=== PATIENT | male | born 1975 | race Caucasian/White ===

== ENCOUNTER 2018-10-22 20:31 | Inpatient (IN) | payer OTHER ==
[~2018-10-22] VITALS: Ht 160 cm; Wt 68.1 kg
[2018-10-22 23:35] VITALS: BP 120/67
[2018-10-23] MEDS ORDERED: CIPROFLOXACIN 400 MG in APPROPRIATE DILUENT 1 EA IV SCH ×2
[2018-10-23] MEDS ORDERED: DICY10CA13 PO (00:23)
[2018-10-23] MEDS ORDERED: ZANTTAB PO (00:23)
[2018-10-23] MEDS: NS 1,000 ML IV SCH ×3 (01:46→23:59)
[2018-10-23] MEDS: metroNIDAZOLE 500 MG in APPROPRIATE DILUENT 1 EA IV SCH ×2 (02:59→08:36)
[2018-10-23] MEDS: HEPARIN SOD (PORCINE) 5000 UNITS/ML VIAL SC SCH ×2 (05:39→18:14)
[2018-10-23 06:00] VITALS: BP 129/76
[2018-10-23] MEDS: FAMOTIDINE 20 MG TAB PO SCH (08:36)
[2018-10-23] MEDS ORDERED: DICYCLOMINE 10 MG CAP PO SCH (09:00)
--- NOTE | 2018-10-23 10:30 | HPE ---
DATE OF ADMISSION: 10/23/2018 ATTENDING PHYSICIAN: Dr. Samson CHIEF COMPLAINT: Nausea, vomiting, diarrhea and abdominal pain. HISTORY OF PRESENT ILLNESS: The patient is a 43-year-old white male transferred from [facility] due to above complaints. History is provided by himself; however, the patient is a poor historian. He states that in the several years he has intermittent abdominal pain, nausea, vomiting, and diarrhea, which he did not know what caused it. He was diagnosed with Clostridium (C.) difficile diarrhea in [facility] and was treated with Flagyl. He stated that he was seen by dining room host/hostess in [place] and recommend to followup for colonoscope to rule out colitis. Today, due to worsening pain, he went to [place] again and in that hospital he had an abdominal CT done, which demonstrated colitis. He was requested for transfer here for further evaluation due to gastroenterology service here in this hospital. Otherwise, no other complaints. REVIEW OF SYSTEMS: Denies fever. No chills. No headache or blurred vision. No shortness of breath. No chest pain. No tingling, numbness or weakness in the arms or lower extremities. All other systems reviewed but negative. PAST MEDICAL HISTORY: None. PAST SURGICAL HISTORY: 1. Hernia repair. ALLERGIES: No known drug allergies. SOCIAL HISTORY: Remote tobacco use but quit many years ago. Denies alcohol abuse. Denies illicit drug abuse. He is a [employer]. FAMILY HISTORY: His father has a history of myocardial infarction, but no family history of Crohn's disease or colitis. PHYSICAL EXAMINATION: VITAL SIGNS: Temperature 97.5, heart rate 84, respiratory rate 18, blood pressure 120/67, and oxygen saturation 95% on room air. GENERAL: He is awake, alert and oriented times three. He is not in acute distress. HEENT: Atraumatic. Pupils are equal, round and reactive to light. Extraocular muscles intact. No jaundice. Ears, nose and throat normal. Mouth: Mucosa not dry. NECK: No jugular venous distention (JVD) or bruits. LUNGS: Clear. No wheezing. No crackles. HEART: S1, S2 regular. No murmur. ABDOMEN: Soft. Bowel sounds positive. Mild diffuse tenderness but no rebound. LOWER EXTREMITIES: No edema in bilateral lower extremities. NEUROLOGIC: Nonfocal. SKIN: No rash. PSYCHOLOGIC: No acute psychosis. DIAGNOSTICS AND LABORATORIES: Outside hospital studies were reviewed. IMPRESSION: This is a 43-year-old white male without significant medical history, transferred from outside hospital due to abdominal pain and CAT scan that showed colitis. PLAN: We will treat him with IV hydration, Cipro, and Flagyl. He needs a GI consultation. ALEISHA
[2018-10-23 11:15] VITALS: BP 120/78
[2018-10-23] MEDS: ONDANSETRON 4MG/2ML VIAL (J2405) IV PRN ×3 (12:29→23:58)
[2018-10-23] MEDS: VANCOMYCIN ORAL SOL 250MG/5ML ORAL SYRINGE PO SCH ×3 (12:59→23:58)
--- NOTE | 2018-10-23 15:09 | IPNPDOC ---
Date Seen The patient was seen on 10/23/18. Progress Note SUBJECTIVE: Patient tells me that he feels the same he still has significant abdominal pain he is having diarrhea still he is still having nausea with vomiting. He feels no different from when he arrived to the hospital. He tells me that he was diagnosed with C. difficile 3 weeks ago was treated with Flagyl had improvement in his symptoms however 5 days ago he completed this treatment and since then he has noted recurrence of symptoms nausea vomiting diarrhea abdominal pain otherwise patient denies chest pain, shortness breath, fevers, chills OBJECTIVE PHYSICAL EXAMINATION: VITAL SIGNS: Please see below. GENERAL: Pleasant man sitting up in bed awake alert oriented speaking in complete sentences no acute distress HEENT: Moist mucous membranes no elevation in CVP CARDIOVASCULAR: S1 S2 regular no additional heart sounds appreciated. RESPIRATORY: Clear to auscultation bilaterally. ABDOMINAL: Bowel sounds present but diminished abdomen soft and diffusely tender to deep palpation EXTREMITIES: No clubbing cyanosis or edema NEUROLOGICAL: Spontaneously moves all 4 extremities cranial 2 through 12 grossly intact no gross focal deficits appreciated PSYCHOLOGICAL: Appropriate LABORATORY DATA, MICROBIOLOGY: Please see below. IMAGING STUDIES: None ASSESSMENT AND PLAN: This is a 43-year-old man with nausea vomiting diarrhea PROBLEMS: 1. Nausea vomiting diarrhea: Reportedly he had a CAT scan that [facility] that revealed colitis. Patient recently had similar symptoms that were attributed to C. difficile colitis. He had improved on treatment and symptoms quickly recurred once treatment stopped. His clinical history is highly concerning for recurrence of C. difficile. I'll discontinue Cipro Flagyl as he has had Flagyl treatment once already. I'll provide him with by mouth vancomycin check a GI PCR panel which I suspect still remain positive from his previous C. difficile infection however if it is negative it would be beneficial to have ruled this out. Should he fail to improve on these measures or his GI PCR panel remained negative would consider inpatient GI consultation at that time. Given his nausea vomiting diarrhea at this time I will actually keep him nothing by mouth provide some bowel rest. I do have concern that his colonic spasm secondary to colitis may be related to C. difficile and as such for now I will hold off on dicyclomine. 2. Gastroesophageal reflux disease: Continue with Pepcid DVT prophylaxis: heparin DISPOSITION: Pending clinical improvement. VS, I&O, 24H, Fishbone Vital Signs/I&O Vital Signs Date Time Temp Pulse Resp B/P (MAP) Pulse Ox O2 Delivery O2 Flow Rate FiO2 10/23/18 11:15 98.9 68 18 120/78 (92) 98 Laboratory Data 24H LABS Laboratory Tests 2 10/23/18 07:55: Erythrocyte Sedimentation Rate 2, Lactic Acid Level 1.0, C-Reactive Protein, Quantitative 1.68H Microbiology Microbiology 10/23/18 Blood Culture, Received Pending 10/23/18 Blood Culture, Received Pending 10/23/18 Gastrointestinal Tract Panel (PCR), Received Pending OSCAR SORTO MD Oct 23, 2018 15:09
[2018-10-23 16:00] VITALS: BP 129/86
[2018-10-23 20:24] VITALS: BP 137/88
[2018-10-24 00:01] VITALS: BP 140/90
[2018-10-24 06:00] VITALS: BP 140/92
[2018-10-24] MEDS: VANCOMYCIN ORAL SOL 250MG/5ML ORAL SYRINGE PO SCH ×3 (06:15→18:06)
[2018-10-24] MEDS: HEPARIN SOD (PORCINE) 5000 UNITS/ML VIAL SC SCH ×2 (06:15→18:07)
[2018-10-24] MEDS: ONDANSETRON 4MG/2ML VIAL (J2405) IV PRN (06:28)
[2018-10-24 06:37] LABS: HEMATOCRIT 41.6 % (42.0-52.0); HEMOGLOBIN 13.9 g/dl (13.5-17.5); MEAN CORPUSCULAR HEMOGLOBIN 30.3 pg (27.0-33.0); MEAN CORPUSCULAR HGB CONC 33.4 g/dl (32.0-36.5); MEAN CORPUSCULAR VOLUME 90.8 fl (80.0-96.0); PLATELET COUNT, AUTOMATED 276 10^3/uL (150-450); RED BLOOD COUNT 4.58 10^6/uL (4.30-6.10); WHITE BLOOD COUNT 10.8 10^3/uL (4.0-10.0)
[2018-10-24 06:56] LABS: BLOOD UREA NITROGEN 10 MG/DL (7-18); CALCIUM LEVEL 8.5 MG/DL (8.5-10.1); CARBON DIOXIDE LEVEL 27 MEQ/L (21-32); CHLORIDE LEVEL 112 MEQ/L (98-107); CREATININE FOR GFR 1.17 MG/DL (0.70-1.30); GLOMERULAR FILTRATION RATE > 60.0 (>60); GLUCOSE, FASTING 96 MG/DL (70-100); SODIUM LEVEL 143 MEQ/L (136-145)
[2018-10-24 08:00] VITALS: BP 120/84
[2018-10-24] MEDS: FAMOTIDINE 20 MG TAB PO SCH (09:14)
[2018-10-24] MEDS: NS 1,000 ML IV SCH ×2 (10:07→17:19)
--- NOTE | 2018-10-24 13:27 | IPNPDOC ---
Date Seen The patient was seen on 10/24/18. Progress Note SUBJECTIVE: Patient is a 43-year-old male with abdominal pain, nausea, and vomiting found to have Clostridioides difficile. Patient is evaluated at bedside this morning. His abdominal pain, nausea and vomiting have greatly improved. Denies fevers, night sweats, chills. He would like something to eat. Patient states that he has been dealing with similar symptoms for 7 years. He notes symptom recurrence with beer and salad dressing specifically. This is his second infection with C. difficile. He had just completed treatment when he was evaluated by gastroenterology at the beginning of October. No intervention or invasive evaluation was undertaken as patient was found to have a recurrence of C. difficile. OBJECTIVE PHYSICAL EXAMINATION: VITAL SIGNS: Please see below. GENERAL: Well nourished, well developed male, alert and conversant, answers questions appropriately, no acute distress. HEENT: Atraumatic, normocephalic, PERRL, EOMI, oral mucosa appears pink and moist, nasal septum appears midline, nares are patent. CARDIOVASCULAR: Regular rate and rhythm, normal S1 and S2, no murmur, rub, click. RESPIRATORY: Clear to auscultation bilaterally, adequate inspiratory and expiratory airway excursion, symmetric airway entry, no focal consolidations, no wheeze, rhonchi, crackles. ABDOMINAL: Flat, soft, non-tender, non-distended, guarding in epigastric region, no rebound, bowel sounds appreciated throughout. EXTREMITIES: No clubbing, no cyanosis, peripheral pulses equal and symmetrical, +2. NEUROLOGICAL: CN II-XII grossly intact. PSYCHOLOGICAL: Mood and affect appropriate. LABORATORY DATA, IMAGING STUDIES, MICROBIOLOGY: Please see below. DVT prophylaxis ordered?: Heparin 5,000 units SQ Q12H. ASSESSMENT AND PLAN: This is a 43-year-old male with abdominal pain, nausea, and vomiting found to have Clostridioides difficile. PROBLEMS: 1. Abdominal pain with nausea and vomiting 2/2 C. difficile Previously treated with Metronidazole GI panel: positive for Clostridium difficile A/B Blood cultures are negative C/W Vancomycin C/W Famotidine, Ondansetron C/W NS @ 100 mLs/hr; D/C once tolerating diet DISPOSITION: Potential discharge in the next 24-48 hours. VS, I&O, 24H, Fishbone Vital Signs/I&O Vital Signs Date Time Temp Pulse Resp B/P (MAP) Pulse Ox O2 Delivery O2 Flow Rate FiO2 10/24/18 08:00 97.4 74 18 120/84 (96) 100 I&O- Last 24 Hours up to 6 AM 10/24/18 06:00 Intake Total 2610 ml Balance 2610 ml Laboratory Data 24H LABS Laboratory Tests 2 10/24/18 06:05: Nucleated Red Blood Cells % (auto) 0.0, Anion Gap 4L, Glomerular Filtration Rate > 60.0, Blood Urea Nitrogen 10, Creatinine 1.17, Sodium Level 143, Potassium Level 4.0, Chloride Level 112H, Carbon Dioxide Level 27, Calcium Level 8.5 CBC/BMP Laboratory Tests 10/24/18 06:05 Red Blood Count 4.58, Mean Corpuscular Volume 90.8, Mean Corpuscular Hemoglobin 30.3, Mean Corpuscular Hemoglobin Concent 33.4, Red Cell Distribution Width 12.3, Calcium Level 8.5 Microbiology Microbiology 10/23/18 Blood Culture - Preliminary, Resulted No growth after 24 hours . All specim... 10/23/18 Blood Culture - Preliminary, Resulted No growth after 24 hours . All specim... 10/23/18 Gastrointestinal Tract Panel (PCR) - Final, Complete Clostridium Difficile A/B VERONICA LIVINGSTON DO Oct 24, 2018 13:27
[2018-10-24 16:00] VITALS: BP 135/94
[2018-10-25] VITALS: BP 130/61
[2018-10-25] MEDS: VANCOMYCIN ORAL SOL 250MG/5ML ORAL SYRINGE PO SCH ×2 (00:14→06:47)
[2018-10-25] MEDS: NS 1,000 ML IV SCH (04:00)
[2018-10-25] MEDS: HEPARIN SOD (PORCINE) 5000 UNITS/ML VIAL SC SCH (06:47)
[2018-10-25 06:58] LABS: HEMATOCRIT 41.1 % (42.0-52.0); MEAN CORPUSCULAR HEMOGLOBIN 29.4 pg (27.0-33.0); MEAN CORPUSCULAR HGB CONC 34.1 g/dl (32.0-36.5); MEAN CORPUSCULAR VOLUME 86.3 fl (80.0-96.0); PLATELET COUNT, AUTOMATED 317 10^3/uL (150-450); RED BLOOD COUNT 4.76 10^6/uL (4.30-6.10); WHITE BLOOD COUNT 9.4 10^3/uL (4.0-10.0)
[2018-10-25 07:28] LABS: BLOOD UREA NITROGEN 7 MG/DL (7-18); CALCIUM LEVEL 9.1 MG/DL (8.5-10.1); CARBON DIOXIDE LEVEL 26 MEQ/L (21-32); CHLORIDE LEVEL 109 MEQ/L (98-107); CREATININE FOR GFR 1.05 MG/DL (0.70-1.30); GLOMERULAR FILTRATION RATE > 60.0 (>60); GLUCOSE, FASTING 103 MG/DL (70-100); POTASSIUM SERUM 3.9 MEQ/L (3.5-5.1); SODIUM LEVEL 141 MEQ/L (136-145)
[2018-10-25 08:00] VITALS: BP 137/85
[2018-10-25] MEDS ORDERED: VANC125C3 PO (08:00)
[2018-10-25] MEDS: FAMOTIDINE 20 MG TAB PO SCH (09:15)
--- NOTE | 2018-10-25 11:22 | DS.PDOC ---
Discharge Summary General Date of Admission Oct 23, 2018 at 00:56 Date of Discharge 10/25/2018 Attending Physician: CAN NIÑO DO Specialist/Consultants Involve Primary care provider: [facility] Discharge Summary PROCEDURES PERFORMED DURING STAY: None. ADMITTING DIAGNOSES: 1. Colitis. DISCHARGE DIAGNOSES: 1. Abdominal pain with nausea and vomiting secondary to C. difficile. COMPLICATIONS/CHIEF COMPLAINT: Colitis. HISTORY OF PRESENT ILLNESS: Mr. Rowan is a 43-year-old white male transferred from [facility] due to above complaints. History is provided by himself; however, the patient is a poor historian. He states that in the sever al years he has intermittent abdominal pain, nausea, vomiting, and diarrhea, which he did not know what caused it. He was diagnosed with Clostridium (C.) difficile diarrhea in [facility] and was treated with Flagyl. He stated that he was seen by shale planer operator in [place] and recommend to followup for colonoscope to rule out colitis. Today, due to worsening pain, he went to [place] again and in that hospital he had an abdominal CT done, which demonstrated colitis. He was requested for transfer here for further evaluation due to gastroenterology service here in this hospital. Otherwise, no other complaints. HOSPITAL COURSE: Patient was admitted. He was given IV hydration, started on Ciprofloxacin and Flagyl initially, but switched to oral Vancomycin with a GI panel evaluated which was positive for C. difficile A/B. Continued Famotidine and Ondansetron. IV hydration was discontinued once patient was tolerating oral intake. He improved clinically throughout hospitalization and was stable at time of discharge. He has a follow-up appointment with gastroenterology, Dr. Keen, in November. He has been urged to follow-up with his primary care provider at [facility]. DISCHARGE MEDICATIONS: Please see below. ALLERGIES: Please see below. PHYSICAL EXAMINATION ON DISCHARGE: VITAL SIGNS: Please see below. GENERAL: Well nourished, well developed male, alert and conversant, answers questions appropriately, no acute distress. HEENT: Atraumatic, normocephalic, PERRL, EOMI, oral mucosa appears pink and moist, nasal septum appears midline, nares are patent. CARDIOVASCULAR: Regular rate and rhythm, normal S1 and S2, no murmur, rub, click. RESPIRATORY: Clear to auscultation bilaterally, adequate inspiratory and expiratory airway excursion, symmetric airway entry, no focal consolidations, no wheeze, rhonchi, crackles. ABDOMINAL: Flat, soft, non-tender, non-distended, no guarding or rebound, bowel sounds appreciated throughout. EXTREMITIES: No clubbing, no cyanosis, peripheral pulses equal and symmetrical, +2. NEUROLOGICAL: CN II-XII grossly intact. PSYCHOLOGICAL: Mood and affect appropriate. LABORATORY DATA: Please see below. IMAGING: None. PROGNOSIS: Stable. ACTIVITY: As tolerated. DIET: As tolerated. DISCHARGE PLAN: Problem: Managing health at home Goal: Improve health & wellness Instructions: Follow DC Instruction DISPOSITION: Home. DISCHARGE INSTRUCTIONS: 1. [facility] on 11/01/[address] at [address] 2[address] Dr. Keen on 11/23/2018 at 1PM. 3. Complete Vancomycin 125mg by mouth four times daily for 8 days. 4. Return to the nearest Emergency Department should your symptoms worsen or persist. ITEMS TO FOLLOWUP ON ON OUTPATIENT: 1. C. difficile. DISCHARGE CONDITION: Stable. TIME SPENT ON DISCHARGE: Greater than 30 minutes. Vital Signs/I&Os Vital Signs Date Time Temp Pulse Resp B/P (MAP) Pulse Ox O2 Delivery O2 Flow Rate FiO2 10/25/18 08:00 98.7 65 18 137/85 (102) 99 I&O- Last 24 Hours up to 6 AM 10/25/18 06:00 Intake Total 4380 ml Output Total 1000 ml Balance 3380 ml Laboratory Data Labs 24H Laboratory Tests 2 10/25/18 06:29: Nucleated Red Blood Cells % (auto) 0.0, Anion Gap 6L, Glomerular Filtration Rate > 60.0, Blood Urea Nitrogen 7, Creatinine 1.05, Sodium Level 141, Potassium Level 3.9, Chloride Level 109H, Carbon Dioxide Level 26, Calcium Level 9.1 CBC/BMP Laboratory Tests 10/25/18 06:29 Red Blood Count 4.76, Mean Corpuscular Volume 86.3, Mean Corpuscular Hemoglobin 29.4, Mean Corpuscular Hemoglobin Concent 34.1, Red Cell Distribution Width 11.9, Calcium Level 9.1 Microbiology Microbiology 10/23/18 Blood Culture - Preliminary, Resulted No Growth after 48 hours. All Specime... 10/23/18 Blood Culture - Preliminary, Resulted No Growth after 48 hours. All Specime... 10/23/18 Gastrointestinal Tract Panel (PCR) - Final, Complete Clostridium Difficile A/B Discharge Medications Scheduled Dicyclomine HCl (Dicyclomine HCl) 10 Mg Capsule, 10 MG PO TID, (Reported) Ranitidine Hcl (Zantac) 150 Mg Tablet, 2 TAB PO DAILY, (Reported) Vancomycin Hcl (Vancomycin HCl) 125 Mg Capsule, 125 MG PO QID Allergies Coded Allergies: No Known Allergies (Unverified , 10/23/18) VERONICA LIVINGSTON DO Oct 25, 2018 11:22
== END 2018-10-25 11:20 | disposition home or self-care (01) | DRG 248 ==
LOC: UNDOADMIN 23:38 → M MSPAV 23:38 → M PED 10-23 11:14
PROVIDERS: ADMIT Hospitalist; ATTEND Family Medicine
DX: A04.72 Enterocolitis due to Clostridium difficile, not specified as recurrent (principal)

== ENCOUNTER → 2018-12-01 | Outpatient (CLI) | payer OTHER ==
[~2018-12-01] MED LIST: DICY10CA13 PO; E-Z-PAQUE 96% w/w SUSP 176GM BTL As Ordered ONE; VANC125C3 PO; ZANT150T40 PO
--- NOTE | 2018-12-01 17:22 | REP ---
Small bowel follow-through The procedure was performed under the direct supervision of Dr. Isaac. The images were reviewed with Dr. Isaac. The navy airspace officer film shows no organomegaly or pathological masses. The intestinal gas pattern is nonspecific. Liquid barium was administered and the barium column was followed through the small bowel to the level of the terminal ileum. Small bowel transit time is approximately 25 minutes . During fluoroscopy gentle palpation shows all loops are freely movable and pliable. There are no fixed or angulated loops. The small bowel mucosal pattern is normal in course and caliber. There is no transition to suggest a partial small bowel obstruction. Spot filming of the terminal ileum shows it to be unremarkable. Impression: Small bowel follow-through examination within normal limits. 1.1 minutes of fluoro time was utilized for this procedure. Reviewed by YING Parks 12/01/2018 04:34 P Electronically Signed by Asaf Isaac MD 12/01/2018 05:13 P
--- NOTE | 2018-12-05 14:10 | REP ---
Clinical: Abdominal pain and nausea. Technique: Real time rodney scale ultrasound examination using curved array transducer. Findings: Liver and visualized pancreas are normal in contour, size, echogenicity without focal hepatic or pancreatic lesion identified. The gallbladder is normal and without gallstones, wall thickening, or pericholecystic fluid. No biliary ductal dilatation is appreciated and the common bile duct measures 3.4 mm diameter. The right kidney is normal in reniform shape without hydronephrosis and measures 10.4 x 4.2 x 5.3 cm. No ascites. Impression: Normal right upper quadrant abdominal ultrasound. Electronically Signed by Baldemar Sandoval MD 12/05/2018 02:02 P
== END ==
LOC: M RAD 08:57
PROVIDERS: ATTEND Internal Medicine Gastroenterology
DX: K58.0 Irritable bowel syndrome with diarrhea (principal)

== ENCOUNTER → 2018-12-20 | Outpatient (CLI) | payer OTHER ==
[~2018-12-20] MED LIST changes: -E-Z-PAQUE 96% w/w SUSP 176GM BTL As Ordered ONE
--- NOTE | 2018-12-20 10:57 | REP ---
Hepatobiliary scan and gallbladder ejection fraction: History: Nausea. Other specified diseases of gallbladder. Technique: 6.6 mCi of technetium-99m mebrofenin was injected and sequential anterior images are acquired. 65 minutes after the mebrofenin injection, the patient consumed 8 ounces Ensure and an additional 60 minutes of imaging was acquired. Regions of interest are plotted around the gallbladder. Findings: The initial hepatocellular parenchymal uptake phase is normal and homogeneous. Intra- and extra-hepatic bile ducts are labeled by the 10 -minute image. The gallbladder is first labeled on the 10 -minute image. There is normal washout from the liver parenchyma into the gallbladder and small intestine on subsequent images. The gallbladder ejection fraction is 68 %. Values greater than 35 % are considered normal with this technique. Impression: Normal hepatobiliary scan and normal gallbladder ejection fraction. Electronically Signed by Robert Galindo MD 12/20/2018 10:48 A
== END ==
LOC: M RAD 07:46
PROVIDERS: ATTEND Internal Medicine Gastroenterology
DX: K82.9 Disease of gallbladder, unspecified (principal)
CPT/HCPCS: 78227; A9537; J2805

== ENCOUNTER 2019-01-13 11:37 | Day surgery (SDC) | payer OTHER ==
[~2019-01-13] VITALS: Ht 160 cm; Wt 68.0 kg
[~2019-01-13 11:37] MED LIST changes: +LIDOCAINE 2% INJ 100 MG/5 ML SDV (FOR ANES.) As Ordered ONE; +NS 1,000 ML IV ONE; +PROPOFOL 200 MG/20 ML VIAL As Ordered ONE
--- NOTE | 2019-01-13 12:35 | ROOR ---
Patient Name: Brendan Rowan Procedure Date: 01/13/2019 12:15 PM Date of : 1975 Age: 43 Room: [facility] Gender: Male Note Status: Finalized Procedure: Upper GI endoscopy Indications: Abdominal pain, Nausea. suspected Cannabis Hyperemesis syndrome Providers: Jacinto GALO MD Referring MD: Amadeo Camacho Requesting Provider: Medicines: Monitored Anesthesia Care Complications: No immediate complications. Procedure: Pre-Anesthesia Assessment: - The heart rate, respiratory rate, oxygen saturations, blood pressure, adequacy of pulmonary ventilation, and response to care were monitored throughout the procedure. The Endoscope was introduced through the mouth, and advanced to the third part of duodenum. The upper GI endoscopy was accomplished without difficulty. The patient tolerated the procedure well. Findings: The examined esophagus was normal. Prominent gastric folds were found at the pylorus. Biopsies were taken with a cold forceps for histology. The entire examined stomach was normal. The examined duodenum was normal. Impression: - Normal esophagus. - Enlarged gastric fold/polypoid fold in pylorus-dubious significance. Biopsied. - Otherwise normal stomach. - Normal examined duodenum. Recommendation: - Telephone endoscopist for pathology results in 2 weeks. - Avoid/reduce Cannabis - Avoid/reduce Alcohol Jacinto Galo MD Jacinto GALO MD 01/13/2019 12:35:13 PM Electronically signed by Jacinto GALO MD Number of Addenda: 0 Note Initiated On: 01/13/2019 12:15 PM Estimated Blood Loss: Estimated blood loss: none.
--- NOTE | 2019-01-13 12:50 | ROOR ---
Patient Name: Brendan Rowan Procedure Date: 01/13/2019 12:19 PM Date of : 1975 Age: 43 Room: [facility] Gender: Male Note Status: Finalized Procedure: Colonoscopy Indications: Generalized abdominal pain, Change in bowel habits. Suspect Cannabis Hyperemesis Synrome Providers: Jacinto GALO MD Referring MD: Amadeo Camacho Requesting Provider: Medicines: Monitored Anesthesia Care Complications: No immediate complications. Procedure: Pre-Anesthesia Assessment: - The heart rate, respiratory rate, oxygen saturations, blood pressure, adequacy of pulmonary ventilation, and response to care were monitored throughout the procedure. The Colonoscope was introduced through the anus and advanced to 15 cm into the ileum. The colonoscopy was performed without difficulty. The patient tolerated the procedure well. The quality of the bowel preparation was adequate. Findings: The perianal and digital rectal examinations were normal. Small Internal Hemorrhoids. The entire examined colon appeared normal on direct and retroflexion views. The terminal ileum appeared normal. Fluid aspiration for Clostridium difficile was performed. Impression: - Small Internal Hemorrhoids. - The entire colon is normal on direct and retroflexion views. - The examined portion of the ileum was normal. - Fluid aspiration was performed. Recommendation: - Telephone endoscopist for pathology results in 2 weeks. - Avoid/Reduce Alcohol intake. - Avoid/Reduce Cannablis intake. Jacinto Galo MD Jacinto GALO MD 01/13/2019 12:50:10 PM Electronically signed by Jacinto GALO MD Number of Addenda: 0 Note Initiated On: 01/13/2019 12:19 PM Estimated Blood Loss: Estimated blood loss: none.
[2019-01-13 13:42] VITALS: BP 123/86
[2019-01-13 14:39] LABS: CLOSTRIDIUM DIFFICILE PCR NEGATIVE (NEGATIVE)
== END 2019-01-13 13:42 | disposition home or self-care (01) ==
LOC: M OPP 11:37
PROVIDERS: ATTEND Internal Medicine Gastroenterology
DX: R10.84 Generalized abdominal pain (principal); R19.4 Change in bowel habit; K64.8 Other hemorrhoids; K29.60 Other gastritis without bleeding; R11.0 Nausea; Z79.899 Other long term (current) drug therapy

== ENCOUNTER 2019-06-11 10:24 | Emergency (ER) | payer OTHER ==
[~2019-06-11] VITALS: Ht 160 cm; Wt 69.1 kg
[~2019-06-11 10:24] MED LIST changes: -LIDOCAINE 2% INJ 100 MG/5 ML SDV (FOR ANES.) As Ordered ONE; -NS 1,000 ML IV ONE; -PROPOFOL 200 MG/20 ML VIAL As Ordered ONE
[2019-06-11] MEDS ORDERED: NS 1,000 ML IV ONE (10:45)
[2019-06-11] MEDS ORDERED: ONDANSETRON 4MG/2ML VIAL (J2405) IV ONE (10:45)
[2019-06-11 10:55] LABS: BASO # 0.1 10^3/uL (0.0-0.2); BASO % 0.4 % (0.0-1.0); HEMATOCRIT 48.9 % (42.0-52.0); HEMOGLOBIN 16.4 g/dl (13.5-17.5); LYMPH # 1.5 10^3/uL (1.5-5.0); LYMPH % 5.4 % (24.0-44.0); MEAN CORPUSCULAR HEMOGLOBIN 28.8 pg (27.0-33.0); MEAN CORPUSCULAR HGB CONC 33.5 g/dl (32.0-36.5); MEAN CORPUSCULAR VOLUME 85.8 fl (80.0-96.0); MONO % 3.5 % (0.0-5.0); NEUTROPHILS % 89.8 % (36.0-66.0); PLATELET COUNT, AUTOMATED 438 10^3/uL (150-450); WHITE BLOOD COUNT 28.6 10^3/uL (4.0-10.0)
[2019-06-11 11:15] LABS: NEUTROPHILS # 25.7 10^3/uL (1.5-8.5)
[2019-06-11 11:21] LABS: ALBUMIN 5.1 GM/DL (3.2-5.2); BILIRUBIN,DIRECT 0.2 MG/DL (0.0-0.2); TOTAL PROTEIN 8.7 GM/DL (6.4-8.2)
[2019-06-11] MEDS ORDERED: PANTOPRAZOLE 40MG INJ (PROTONIX) (C9113) IV ONE (11:45)
[2019-06-11] MEDS ORDERED: METOCLOPRAMIDE INJ 10MG/2ML VIAL (J2765) IV ONE (11:45)
[2019-06-11] MEDS ORDERED: KETOROLAC 30 MG/ML VIAL (J1885) IV ONE (13:15)
[2019-06-11] MEDS ORDERED: ISOVUE-370 76% 100ML VIAL (Q9967) As Ordered ONE (13:24)
[2019-06-11] MEDS ORDERED: PRED10TA2 PO (15:26)
[2019-06-11] MEDS ORDERED: FLAG500T PO (15:26)
[2019-06-11 15:27] LABS: APPEARANCE, URINE CLEAR (CLEAR); BACTERIA, URINE AUTO NEGATIVE (NEGATIVE); BILIRUBIN, URINE AUTO NEGATIVE (NEGATIVE); BLOOD, URINE BLOOD NEGATIVE (NEGATIVE); COLOR, URINE YELLOW (YELLOW); GLUCOSE, URINE (UA) AUTO NEGATIVE (NEGATIVE); KETONE, URINE AUTO TRACE mg/dL (NEGATIVE); LEUKOCYTE ESTERASE, URINE AUTO NEGATIVE (NEGATIVE); NITRITE, URINE AUTO NEGATIVE (NEGATIVE); PROTEIN, URINE AUTO NEGATIVE (NEGATIVE); RBC, URINE AUTO 3 /HPF (0-3); SQUAMOUS EPITHELIAL CELL UR AU 0 /HPF (0-6); UROBILINOGEN, URINE AUTO 0.2 mg/dL (0.0-2.0); WBC, URINE AUTO 1 /HPF (0-3)
[2019-06-11 15:28] LABS: SPECIFIC GRAVITY URINE AUTO >1.060 (1.002-1.035)
[2019-06-11 15:33] VITALS: BP 131/78
--- NOTE | 2019-06-12 07:27 | REP ---
CT of the abdomen and pelvis with IV contrast, without bowel contrast for epigastric pain: There are no comparison CT studies. The visualized lung barakat are unremarkable except for minor atelectasis inferiorly in the lingula. The hepatic parenchyma, gallbladder, pancreas and spleen are unremarkable. The adrenals and kidneys are unremarkable. The abdominal aorta is unremarkable. There is no retroperitoneal adenopathy or mass. There is wall thickening of the colon. This is nonspecific but compatible with colitis in the appropriate clinical setting. The small bowel is unremarkable. There is no bowel distension or obstruction. There is no ascites. Pelvis: The appendix and terminal ileum are unremarkable. The bladder is unremarkable. There is no adenopathy or ascites. Impression: Wall thickening of the entire colon. This is compatible with colitis in the appropriate clinical setting. There is no ascites or adenopathy. Otherwise, negative CT study of the abdomen and pelvis Electronically Signed by Asaf Briggs MD 06/11/2019 01:53 P
== END 2019-06-11 15:36 | disposition home or self-care (01) ==
LOC: M ED 10:24
DX: K51.90 Ulcerative colitis, unspecified, without complications (principal); Z79.899 Other long term (current) drug therapy
CPT/HCPCS: 74177; 80047; 80076; 81001; 82150; 83690; 85025; 87507; 96361; 96374; 96375; 99284; C9113; J1885; J2405; J2765; Q9967

== ENCOUNTER → 2021-02-21 | Outpatient (CLI) | payer OTHER ==
[~2021-02-21] MED LIST changes: +FLAG500T PO; +PRED10TA2 PO
--- NOTE | 2021-02-21 14:29 | REP ---
INDICATION: CERVICALGIA COMPARISON: None. TECHNIQUE: Internal rotation, external rotation, and Y view right and left shoulder. FINDINGS: No acute fracture or dislocation. The acromioclavicular and glenohumeral joints are essentially symmetric, age-appropriate, and intact. Very minimal sclerotic changes are suggested along the inferior border of the glenoid rims bilaterally (left greater than right). Sub acromial space is normal bilaterally. Surrounding soft tissues are unremarkable. IMPRESSION: Relatively symmetric age-appropriate examination. Minimal sclerotic changes along the inferior margins of the glenoid rims (left greater than right). <Electronically signed by Baldemar Sandoval > 02/21/21 [id number]
--- NOTE | 2021-02-21 14:31 | REP ---
INDICATION: CERVICALGIA. COMPARISON: None. TECHNIQUE: AP, lateral, open mouth views of the cervical spine, AP and lateral views of the thoracic spine, and AP, lateral and coned-down views of the lumbar spine. FINDINGS: Cervical, thoracic, and lumbar spine are essentially normal in appearance and age-appropriate. There is no evidence for acute fracture/compression injury or subluxation. There is no evidence for significant focal degenerative spondylosis. IMPRESSION: Essentially normal age-appropriate cervical spine series. <Electronically signed by Baldemar Sandoval > 02/21/21 [id number]
[2021-02-21 16:03] LABS: BASO # 0.1 10^3/uL (0.0-0.2); BASO % 1.4 % (0.0-1.0); EOS # 0.4 10^3/uL (0.0-0.5); EOS % 3.8 % (0.0-3.0); HEMATOCRIT 41.2 % (42.0-52.0); HEMOGLOBIN 13.5 g/dl (13.5-17.5); LYMPH # 2.4 10^3/uL (1.5-5.0); LYMPH % 25.5 % (24.0-44.0); MEAN CORPUSCULAR HEMOGLOBIN 29.8 pg (27.0-33.0); MEAN CORPUSCULAR HGB CONC 32.8 g/dl (32.0-36.5); MEAN CORPUSCULAR VOLUME 90.9 fl (80.0-96.0); MONO # 0.5 10^3/uL (0.0-0.8); MONO % 5.7 % (2.0-8.0); NEUTROPHILS % 63.2 % (36.0-66.0); PLATELET COUNT, AUTOMATED 315 10^3/uL (150-450); RED BLOOD COUNT 4.53 10^6/uL (4.30-6.10); WHITE BLOOD COUNT 9.5 10^3/uL (4.0-10.0)
[2021-02-21 16:24] LABS: ALBUMIN 4.2 GM/DL (3.2-5.2); ALT/SGPT 18 U/L (12-78); BILIRUBIN,TOTAL 1.7 MG/DL (0.2-1.0); BLOOD UREA NITROGEN 16 MG/DL (7-18); CALCIUM LEVEL 9.1 MG/DL (8.5-10.1); CARBON DIOXIDE LEVEL 28 MEQ/L (21-32); CHLORIDE LEVEL 107 MEQ/L (98-107); CHOLESTEROL LEVEL 161 MG/DL (<200); CHOLESTEROL RISK RATIO 3.096 (<5); CREATININE FOR GFR 1.07 MG/DL (0.70-1.30); GLOMERULAR FILTRATION RATE > 60.0 (>60); GLUCOSE, FASTING 80 MG/DL (70-100); HDL CHOLESTEROL 52 MG/DL (>40); LDL CHOLESTEROL 91 MG/DL (<100); NON-HDL-C 109 MG/DL; POTASSIUM SERUM 4.5 MEQ/L (3.5-5.1); SODIUM LEVEL 138 MEQ/L (136-145); TOTAL PROTEIN 7.3 GM/DL (6.4-8.2); TRIGLYCERIDES LEVEL 92 MG/DL (<150)
[2021-02-21 16:53] LABS: HEMOGLOBIN A1c 4.8 %
== END ==
LOC: M PLAIMG 12:59
PROVIDERS: ATTEND Physician Assistant Medical
DX: M54.2 Cervicalgia (principal)

== ENCOUNTER → 2021-02-28 | Outpatient (CLI) | payer OTHER ==
--- NOTE | 2021-02-28 17:34 | REPVR ---
PROCEDURE INFORMATION: Exam: CT Head Without Contrast Exam date and time: 02/28/2021 4:45 PM Age: 46 years old Clinical indication: Other: Cervicalgia, tbi w/o loc TECHNIQUE: Imaging protocol: Computed tomography of the head without contrast. Radiation optimization: All CT scans at this facility use at least one of these dose optimization techniques: automated exposure control; mA and/or kV adjustment per patient size (includes targeted exams where dose is matched to clinical indication); or iterative reconstruction. COMPARISON: No relevant prior studies available. FINDINGS: Brain: Normal. No hemorrhage. Unremarkable white matter. No mass effect. Cerebral ventricles: No ventriculomegaly. Paranasal sinuses: Visualized sinuses are unremarkable. No fluid levels. Mastoid air cells: Visualized mastoid air cells are well aerated. Bones/joints: Unremarkable. No acute fracture. Soft tissues: Unremarkable. IMPRESSION: No acute intracranial abnormality. Electronically signed by: Kyle Mendiola On 02/28/2021 17:33:46 PM
--- NOTE | 2021-02-28 17:40 | REPVR ---
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 Radiation optimization: All CT scans at this facility use at least one of these dose optimization techniques: automated exposure control; mA and/or kV adjustment per patient size (includes targeted exams where dose is matched to clinical indication); or iterative reconstruction. COMPARISON: CR Spine, entire 2 view Ap, Lat 02/21/2021 2:08 PM FINDINGS: Bones/joints: No acute fracture. Normal alignment. Discs/Spinal canal/Neural foramina: Multilevel degenerative disc disease. No severe spinal canal stenosis. No significant neural foraminal narrowing. Sinuses: Mucous retention cyst/polyps in bilateral maxillary sinus. Lungs: Lung apices are normal. Soft tissues: Unremarkable. IMPRESSION: No acute abnormality. Electronically signed by: Kyle Mendiola On 02/28/2021 17:40:07 PM
== END ==
LOC: M RAD 16:38
PROVIDERS: ATTEND Physician Assistant Medical
DX: M54.2 Cervicalgia (principal); S06.9X0A Unspecified intracranial injury without loss of consciousness, initial encounter; X58.XXXA Exposure to other specified factors, initial encounter; Y92.89 Other specified places as the place of occurrence of the external cause; Y93.9 Activity, unspecified; Y99.9 Unspecified external cause status